=== PATIENT | male | born 1970 | race Two or more races ===

== ENCOUNTER 2018-10-09 23:52 | Emergency (ER) | payer OTHER ==
[~2018-10-09] VITALS: Ht 165.1 cm; Wt 73.0 kg
[2018-10-10] MEDS ORDERED: TETANUS, DIPHTHERIA, PERTUSSIS VAC/PF 0.5ML (>7YR OLD) IM ONE (00:45)
[2018-10-10 01:00] VITALS: BP 147/60
== END 2018-10-10 01:00 | disposition home or self-care (01) ==
LOC: ER 23:52
DX: S01.81XA Laceration without foreign body of other part of head, initial encounter (principal); F15.10 Other stimulant abuse, uncomplicated; X58.XXXA Exposure to other specified factors, initial encounter; Y93.89 Activity, other specified; Y92.89 Other specified places as the place of occurrence of the external cause; Y99.8 Other external cause status
CPT/HCPCS: 90471; 90715; 99283